=== PATIENT | male | born 1990 | race Caucasian/White ===

== ENCOUNTER 2020-01-20 15:37 | Emergency (ER) | payer OTHER ==
[~2020-01-20] VITALS: Ht 180.3 cm; Wt 79.5 kg
[2020-01-20] MEDS ORDERED: NORCO, ANEXSIA 5/325MG TABLET (HYDROcodone/ACETAMINOPHEN) PO ONE (16:15)
--- NOTE | 2020-01-20 16:55 | REP ---
Clinical: Trauma. Sprain. Technique: AP, lateral, bilateral oblique views of the left ankle. Findings: Diffuse soft tissue swelling is appreciated. No obvious acute fracture or dislocation identified. Joint spaces and ankle mortise are intact. Impression: Soft-tissue swelling. No acute fracture or dislocation. Electronically Signed by Jared Figueroa MD 01/20/2020 04:47 P
--- NOTE | 2020-01-20 17:19 | REP ---
Clinical: Trauma. Technique: AP and lateral views of the proximal to mid/distal tibia / fibula. Findings: There is an oblique nondisplaced fracture of the mid fibular shaft. Impression: Nondisplaced fracture of the mid fibular shaft. Electronically Signed by Jared Figueroa MD 01/20/2020 05:10 P
[2020-01-20 18:03] VITALS: BP 140/80
== END 2020-01-20 17:59 | disposition home or self-care (01) ==
LOC: M ED 15:37
DX: S82.235A Nondisplaced oblique fracture of shaft of left tibia, initial encounter for closed fracture (principal); W18.49XA Other slipping, tripping and stumbling without falling, initial encounter; Y93.01 Activity, walking, marching and hiking; Y92.9 Unspecified place or not applicable; Y99.9 Unspecified external cause status; F17.200 Nicotine dependence, unspecified, uncomplicated

== ENCOUNTER 2022-04-02 16:42 | Emergency (ER) | payer OTHER ==
[~2022-04-02] VITALS: Ht 177.8 cm; Wt 92.6 kg
[2022-04-02] MEDS ORDERED: NORCO, ANEXSIA 5/325MG TABLET (HYDROcodone/ACETAMINOPHEN) PO ONE (19:55)
[2022-04-02] MEDS ORDERED: KETO10TAB PO (20:57)
[2022-04-02] MEDS ORDERED: CYCL-707 PO (20:57)
[2022-04-02 21:23] VITALS: BP 147/100
== END 2022-04-02 21:25 | disposition home or self-care (01) ==
LOC: M ED 16:42
DX: S13.4XXA Sprain of ligaments of cervical spine, initial encounter (principal); S39.011A Strain of muscle, fascia and tendon of abdomen, initial encounter; W01.0XXA Fall on same level from slipping, tripping and stumbling without subsequent striking against object, initial encounter; Y92.9 Unspecified place or not applicable; Y93.9 Activity, unspecified; Y99.0 Civilian activity done for income or pay

== ENCOUNTER 2023-06-09 13:24 | Day surgery (SDC) | payer OTHER ==
[~2023-06-09] VITALS: Ht 172.7 cm; Wt 102.4 kg
[~2023-06-09 13:24] MED LIST: CYCL-707 PO; KETO10TAB PO; NS 1,000 ML IV ONE
[2023-06-09] MEDS ORDERED: fentaNYL 100 MCG/2 ML INJECTION As Ordered ONE (15:26)
[2023-06-09] MEDS ORDERED: LIDOCAINE 2% 100MG/5ML SDV (FOR ANES.) As Ordered ONE (15:26)
[2023-06-09] MEDS ORDERED: propofoL 200 MG/20 ML VIAL As Ordered ONE (15:26)
[2023-06-09] MEDS ORDERED: ONDANSETRON 4MG 2ML VIAL As Ordered ONE (15:39)
[2023-06-09 15:43] VITALS: TEMP 97
[2023-06-09 16:04] VITALS: BP 150/94; O2SAT 98
== END 2023-06-09 16:13 | disposition home or self-care (01) ==
LOC: M OPP 13:24
PROVIDERS: ATTEND Internal Medicine Gastroenterology
DX: K21.01 Gastro-esophageal reflux disease with esophagitis, with bleeding (principal); K29.71 Gastritis, unspecified, with bleeding; K22.89 Other specified disease of esophagus; Z87.891 Personal history of nicotine dependence
CPT/HCPCS: 43239; 88305; J2405; J3010